=== PATIENT | male | born 1945 | race Caucasian/White ===

== ENCOUNTER → 2017-11-08 08:19 | Outpatient (CLI) | payer MEDICARE, OTHER, SELFPAY ==
[2017-11-08 10:08] LABS: Hemoglobin A1C 7.6 % (0.0-7.0)
[2017-11-08 13:02] LABS: Chol/HDL Ratio 3.3 (1-3.5); Cholesterol 134 mg/dL (140-200); Glucose,Fasting 197 mg/dL (60-105); HDL Cholesterol 41 mg/dL (27-67); LDL Cholesterol 57 mg/dL (0-130); Triglycerides 181 mg/dL (30-200); VLDL Cholesterol 36 mg/dL (0-40)
[2017-11-09 17:03] LABS: PSA, Free 0.21 ng/mL; Prostate Specific Ag 2.7 ng/mL (0.0-4.0)
== END ==
PROVIDERS: PCP Family Medicine; Visit Provider Family Medicine
DX: E11.9 Type 2 diabetes mellitus without complications (principal); E78.2 Mixed hyperlipidemia; R97.20 Elevated prostate specific antigen [PSA]
CPT/HCPCS: 36415; 80061; 82947; 83036

== ENCOUNTER → 2018-04-10 08:52 | Outpatient (CLI) | payer MEDICARE, SELFPAY ==
[2018-04-12 13:33] LABS: Prostate Specific Ag 1.1 ng/mL (0.0-4.0)
[2018-04-12 13:34] LABS: PSA, Free 0.07 ng/mL
== END ==
PROVIDERS: Visit Provider Radiology Radiation Oncology
DX: C61 Malignant neoplasm of prostate (principal)
CPT/HCPCS: 36415; 84153; 84154